=== PATIENT | female | born 1960 | race Caucasian/White ===

== ENCOUNTER 2016-12-24 17:31 | Emergency (ER) | payer MEDICAID ==
[2016-12-24 17:31] VITALS: BMI 28.5
[2016-12-24 17:47] VITALS: RESP 18
[2016-12-24] MEDS ORDERED: Sodium Chloride 0.9% 1,000 ML IV ONE (19:07)
--- NOTE | 2016-12-24 19:13 | C.PDOC ---
History Of Present Illness 56 year old female with a Hx of CVA in 1997 presents to the ER with a complaint of a headache for the past 3-4 days associated with a sore throat. Patient has residual left sided weakness due to her prior CVA. Denies nausea, vomiting, fever, or chills. Chief Complaint (Nursing): Headache History Per: Patient History/Exam Limitations: no limitations Onset/Duration Of Symptoms: Days Current Symptoms Are (Timing): Still Present Preceeding Symptoms: None Associated Symptoms: denies: Photophobia, Blurred Vision, Nausea, Vomiting Recent travel outside of the [place]: No Past Medical History Reviewed: Historical Data, Nursing Documentation, Vital Signs Vital Signs: Last Vital Signs Temp 98 F 12/24/16 21:40 Pulse 88 12/24/16 21:40 Resp 18 12/24/16 21:40 BP 126/69 12/24/16 21:40 Pulse Ox 99 12/24/16 21:40 - Medical History PMH: Arthritis, Asthma, CVA, Diabetes, HTN, Hypercholesterolemia, Seizures Surgical History: No Surg Hx - [facility] Procedures ANESTH INJECT-SPIN CANAL (01/05/15) INJECT STEROID (01/05/15) LUMBOSAC SPINE X-RAY NEC (01/05/15) SPINAL CANAL INJECT NEC (01/05/15) Family History: States: Unknown Family Hx - Social History Hx Tobacco Use: No Hx Alcohol Use: No Hx Substance Use: No - Immunization History Hx Influenza Vaccination: Yes Review Of Systems Constitutional: Negative for: Fever, Chills ENT: Positive for: Throat Pain Gastrointestinal: Negative for: Nausea, Vomiting Neurological: Positive for: Weakness (Left sided from old CVA), Headache. Negative for: Dizziness Physical Exam - Physical Exam Appears: Non-toxic, Other (Moderate distress) Skin: Normal Color, Warm, Dry Head: Atraumatic, Normacephalic Eye(s): bilateral: Normal Inspection, PERRL, EOMI Oral Mucosa: Moist Throat: Normal, No Erythema, No Exudate Neck: Normal, Normal ROM, No Midline Cervical Tenderness, No Paracervical Tenderness, Supple Chest: Symmetrical, No Tenderness Cardiovascular: Rhythm Regular, No Murmur Respiratory: Normal Breath Sounds, No Rales, No Rhonchi, No Wheezing Gastrointestinal/Abdominal: Soft, No Tenderness Neurological/Psych: Oriented x3, Normal Speech, Normal Cognition, Other (Left sided weakness from prior CVA) ED Course And Treatment - Laboratory Results Result Diagrams: 12/24/16 19:23 12/24/16 19:23 O2 Sat by Pulse Oximetry: 95 (Room air) Pulse Ox Interpretation: Normal - CT Scan/US CT Head Other Rad Studies (CT/US): Read By Radiologist, Radiology Report Reviewed CT/US Interpretation: EXAM: CT Head Without Intravenous Contrast. CLINICAL HISTORY: 56 years old, female; Condition or disease; Headache; Headache not specified; Patient HX: Left side. weakness. H/o stroke. TECHNIQUE: Axial computed tomography images of the head/brain without intravenous contrast. All CT scans at. this facility use one or more dose reduction techniques, viz.: automated exposure control; ma/kV. adjustment per patient size (including targeted exams where dose is matched to indication; i.e. head);. or iterative reconstruction technique. COMPARISON: No relevant prior studies available. FINDINGS: Brain: Mild atrophy. No intracranial hemorrhage. No mass. Moderate encephalomalacia within. RIGHT frontal parietal region. No definite edema. Ventricles: No hydrocephalus. Bones/joints: No acute fracture. Soft tissues: Unremarkable. Sinuses: Complete opacification of LEFT frontal sinus. Partial opacification of LEFT ethmoid sinus. Partial opacification/fluid of LEFT frontal sinus. Minimal mucosal thickening of RIGHT ethmoid,. sphenoid sinuses. Mastoid air cells: No mastoid effusion. Orbits: Unremarkable as visualized. IMPRESSION: 1. No definite acute intracranial abnormality. Acute infarction may be CT occult within first 24 hours. If a focal deficit persists, consider followup CT or MRI for further evaluation. 2. Sinus disease. 3. Incidental/non -acute findings are described above Progress Note: Head CT, EKG, blood work, CXR, and urinalysis ordered. Toradol and IV fluids administered. Disposition Counseled Patient/Family Regarding: Diagnosis - Disposition Referrals: [facility] [Outside] Disposition: HOME/ ROUTINE Disposition Time: 21:13 Condition: STABLE Prescriptions: Azithromycin [Zithromax] 500 mg PO DAILY #10 tablet Loratadine [Claritin] 10 mg PO DAILY #10 tab Naproxen [Naprosyn Tab] 375 mg PO TIDPC #20 tab Instructions: Sinusitis (ED), General Headache (ED) Forms: [facility] (Maori), Gen Discharge Inst English Print Language: ROMANSH - POA Present On Arrival: None - Clinical Impression Clinical Impression: Headache, Sinusitis - Scribe Statement The provider has reviewed the documentation as recorded by the Scribwade Knox All medical record entries made by the Marisaibe were at my direction and personally dictated by me. I have reviewed the chart and agree that the record accurately reflects my personal performance of the history, physical exam, medical decision making, and the department course for this patient. I have also personally directed, reviewed, and agree with the discharge instructions and disposition.
[2016-12-24 19:26] LABS: BASO # 0.1 K/uL (0.0-0.2); BASO % 0.5 % (0.0-2.0); EOS # 0.2 K/uL (0.0-0.7); EOS % 1.9 % (0.0-4.0); HEMATOCRIT 38.5 % (34.0-47.0); LYMPH # 2.5 K/uL (1.0-4.3); LYMPH % 20.6 % (20.0-40.0); MEAN CELL VOLUME 76.2 fL (81.0-99.0); MEAN CORPUSCULAR HEMOGLOBIN 24.6 pg (27.0-31.0); MEAN CORPUSCULAR HGB CONC 32.3 g/dL (33.0-37.0); MEAN PLATELET VOLUME 9.5 fL (7.2-11.7); MONO # 0.8 K/uL (0.0-0.8); MONO % 6.6 % (0.0-10.0); NRBC % 0.1 % (0.0-2.0); RED CELL DISTRIBUTION WIDTH 16.9 % (11.5-14.5); WHITE BLOOD COUNT 12.1 K/uL (4.8-10.8)
[2016-12-24 19:33] LABS: CHLORIDE 94 mmol/L (98-107)
[2016-12-24 19:34] LABS: POTASSIUM 3.5 mmol/L (3.6-5.2); SODIUM 135 mmol/L (132-148)
[2016-12-24 19:36] LABS: BILIRUBIN,TOTAL 0.7 mg/dL (0.2-1.3); GFR AFRICAN-AMERICAN > 60
[2016-12-24 19:37] LABS: ALB/GLOB RATIO 0.8 (1.0-2.1); ALKALINE PHOSPHATASE 113 U/L (38-126); ALT/SGPT 33 U/L (9-52); AST/SGOT 40 U/L (14-36); BLOOD UREA NITROGEN 9 mg/dL (7-17); CALCIUM 9.7 mg/dl (8.6-10.4); CARBON DIOXIDE 28 mmol/L (22-30); GLUCOSE,RANDOM 143 mg/dL (65-105)
[2016-12-24] MEDS ORDERED: Sodium Chloride 0.9% 1,000 ML ONE (19:49)
--- NOTE | 2016-12-24 20:56 | CT ---
EXAM: CT Head Without Intravenous Contrast CLINICAL HISTORY: 56 years old, female; Condition or disease; Headache; Headache not specified; Patient HX: Left side weakness. H/o stroke TECHNIQUE: Axial computed tomography images of the head/brain without intravenous contrast. All CT scans at this facility use one or more dose reduction techniques, viz.: automated exposure control; ma/kV adjustment per patient size (including targeted exams where dose is matched to indication; i.e. head); or iterative reconstruction technique. COMPARISON: No relevant prior studies available. FINDINGS: Brain: Mild atrophy. No intracranial hemorrhage. No mass. Moderate encephalomalacia within RIGHT frontal parietal region. No definite edema. Ventricles: No hydrocephalus. Bones/joints: No acute fracture. Soft tissues: Unremarkable. Sinuses: Complete opacification of LEFT frontal sinus. Partial opacification of LEFT ethmoid sinus. Partial opacification/fluid of LEFT frontal sinus. Minimal mucosal thickening of RIGHT ethmoid, sphenoid sinuses Mastoid air cells: No mastoid effusion. Orbits: Unremarkable as visualized. IMPRESSION: 1. No definite acute intracranial abnormality. Acute infarction may be CT occult within first 24 hours. If a focal deficit persists, consider followup CT or MRI for further evaluation. 2. Sinus disease. 3. Incidental/non-acute findings are described above.
[2016-12-24 21:41] VITALS: BP 126/69; PULSE 88; TEMP 98
--- NOTE | 2016-12-25 10:07 | RAD ---
HISTORY: cold Sx COMPARISON: None available TECHNIQUE: Chest PA and lateral FINDINGS: Examination limited by habitus and patient obliquity. LUNGS: No focal consolidation. Please note that chest x-ray has limited sensitivity for the detection of pulmonary masses. PLEURA: No significant pleural effusion identified. No definite pneumothorax . CARDIOVASCULAR: Heart size appears within normal limits. OSSEOUS STRUCTURES: Degenerative changes. VISUALIZED UPPER ABDOMEN: Mild elevation of the right hemidiaphragm. OTHER FINDINGS: None. IMPRESSION: No focal consolidation, significant pleural effusion, or definite pneumothorax identified.
[2016-12-25 17:37] VITALS: O2SAT 95
--- NOTE | 2016-12-28 15:45 | CARD ---
APPROVED REPORT EKG Measurement Heart [id number] ID [id number] <Conclusion> Normal sinus rhythm Normal ECG
== END 2016-12-24 21:40 | disposition home or self-care (01) ==
LOC: C.ER 17:31
DX: R51 Headache (principal); J32.9 Chronic sinusitis, unspecified
CPT/HCPCS: 70450; 71020; 80053; 85025; 96361; 96374; 99285; J1885; J7040

== ENCOUNTER 2017-06-30 13:27 | Emergency (ER) | payer MEDICAID ==
[2017-06-30 13:27] VITALS: BMI 28.5
[2017-06-30 13:54] VITALS: TEMP 97.8; O2SAT 98
[2017-06-30] MEDS ORDERED: Albuterol-Ipratrop 3 mg / 0.5 (3 ml) UD INH STA (14:02)
[2017-06-30] MEDS ORDERED: MethylPREDNISolone 40 mg Vial IM STA (14:02)
[2017-06-30] MEDS ORDERED: MethylPREDNISolone 40 mg Vial ONE (14:07)
[2017-06-30] MEDS ORDERED: Albuterol-Ipratrop 3 mg / 0.5 (3 ml) UD ONE ×2 (14:08→14:17)
--- NOTE | 2017-06-30 14:44 | C.PDOC ---
History Of Present Illness 56 year old female presents to the ED for evaluation of cough and congestion which began 2 weeks ago. Patient was seen by her PMD and given prescription for Zithromax. She states her cough persists and presents to the ED for further evaluation. Patient denies cough, nausea, and vomiting. Time Seen by Provider: 06/30/17 13:53 Chief Complaint (Nursing): Cough, Cold, Congestion History Per: Patient History/Exam Limitations: no limitations Onset/Duration Of Symptoms: Other (2 weeks ) Current Symptoms Are (Timing): Still Present Associated Symptoms: Cough, Other (congestion ). denies: Nausea, Vomiting Ear Symptoms: Bilateral: None Additional History Per: Patient Past Medical History Reviewed: Historical Data, Nursing Documentation, Vital Signs Vital Signs: Last Vital Signs Temp 97.8 F 06/30/17 13:52 Pulse 88 06/30/17 14:55 Resp 16 06/30/17 14:55 BP 139/81 06/30/17 14:55 Pulse Ox 98 06/30/17 20:27 - Medical History PMH: Arthritis, Asthma, CVA, Diabetes, HTN, Hypercholesterolemia, Seizures Denies: Chronic Kidney Disease Surgical History: No Surg Hx - [facility] Procedures ANESTH INJECT-SPIN CANAL (01/05/15) INJECT STEROID (01/05/15) LUMBOSAC SPINE X-RAY NEC (01/05/15) SPINAL CANAL INJECT NEC (01/05/15) Family History: States: Unknown Family Hx - Social History Hx Tobacco Use: No Hx Alcohol Use: No Hx Substance Use: No - Immunization History Hx Influenza Vaccination: Yes Review Of Systems Respiratory: Positive for: Cough, Other (congestion ) Gastrointestinal: Negative for: Nausea, Vomiting Physical Exam - Physical Exam Appears: Non-toxic, No Acute Distress Skin: Normal Color, Warm, Dry Head: Atraumatic, Normacephalic Eye(s): bilateral: Normal Inspection Ear(s): Bilateral: Normal Nose: Normal, No Discharge Oral Mucosa: Moist Throat: Normal, No Erythema, No Exudate Neck: Supple Chest: Symmetrical, No Deformity, No Tenderness Cardiovascular: Rhythm Regular, No Murmur Respiratory: No Rales, No Rhonchi, Wheezing (expiratory ) Extremity: Normal ROM, Capillary Refill (less than 2 seconds ) Neurological/Psych: Normal Speech, Normal Cognition ED Course And Treatment O2 Sat by Pulse Oximetry: 98 (on RA) Pulse Ox Interpretation: Normal Medical Decision Making Medical Decision Making: CXR reviewed showing no infiltrates, pleural effusion or pneumothorax Patient treated with Solu-medrol and duoneb Patient remained afebrile alert and oriented with stable vital signs during ER evaluation. On re-examination, patient is resting comfortably in no acute distress. Lungs clear bilaterally. Patient has no fever and in no distress. Patient reports improvement of symptoms. Patient feels comfortable going home and will be discharged. Patient given follow up instructions. Instructed to return to ER if symptoms worsen or new symptoms arise. Disposition Counseled Patient/Family Regarding: Diagnosis, Need For Followup, Rx Given - Disposition Disposition: HOME/ ROUTINE Disposition Time: 14:43 Condition: STABLE Additional Instructions: Contine usando sita medicamentos para el asma. Benedict Prednisone a diario. Kamlesh un seguimiento con oneill mdico primario o clnica en 1 semana para janneth evaluacin adicional. Continue using your asthma medications. Take Prednisone daily. Follow up with your primary medical doctor or clinic in 1 week for further evaluation. 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 - Scribe Statement The provider has reviewed the documentation as recorded by the Scribe (Roslyn Vizcaino) All medical record entries made by the Scribe were at my direction and personally dictated by me. I have reviewed the chart and agree that the record accurately reflects my personal performance of the history, physical exam, medical decision making, and the department course for this patient. I have also personally directed, reviewed, and agree with the discharge instructions and disposition.
[2017-06-30 14:56] VITALS: BP 139/81; PULSE 88; RESP 16
--- NOTE | 2017-06-30 15:20 | RAD ---
HISTORY: sob COMPARISON: Comparison is made with 12/24/2016 TECHNIQUE: Chest PA and lateral FINDINGS: LUNGS: No active pulmonary disease. PLEURA: No significant pleural effusion identified. No pneumothorax apparent. CARDIOVASCULAR: Normal. OSSEOUS STRUCTURES: No significant abnormalities. VISUALIZED UPPER ABDOMEN: Normal. OTHER FINDINGS: None. IMPRESSION: No active disease.
== END 2017-06-30 14:55 | disposition home or self-care (01) ==
LOC: C.ER 13:27
DX: J40 Bronchitis, not specified as acute or chronic (principal)
CPT/HCPCS: 71046; 94640; 96372; 99283; J2920

== ENCOUNTER 2018-06-12 14:30 | Emergency (ER) | payer MEDICAID ==
[2018-06-12 14:42] VITALS: BMI 29.6
[2018-06-12 15:05] VITALS: O2SAT 98
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
[2018-06-12 16:03] LABS: BASO % 0.5 % (0.0-2.0); EOS # 0.2 K/uL (0.0-0.7); EOS % 2.1 % (0.0-4.0); HEMOGLOBIN 10.5 g/dL (11.0-16.0); LYMPH # 2.7 K/uL (1.0-4.3); LYMPH % 32.3 % (20.0-40.0); MEAN CELL VOLUME 71.7 fL (81.0-99.0); MEAN CORPUSCULAR HEMOGLOBIN 22.1 pg (27.0-31.0); MEAN CORPUSCULAR HGB CONC 30.8 g/dL (33.0-37.0); MEAN PLATELET VOLUME 9.8 fL (7.2-11.7); MONO # 0.5 K/uL (0.0-0.8); MONO % 6.4 % (0.0-10.0); NEUT # 4.9 K/uL (1.8-7.0); NEUT % 58.7 % (50.0-75.0); RBC 4.77 Mil/uL (3.80-5.20); RED CELL DISTRIBUTION WIDTH 18.5 % (11.5-14.5); WHITE BLOOD COUNT 8.3 K/uL (4.8-10.8)
[2018-06-12 16:19] LABS: ALB/GLOB RATIO 1.1 (1.0-2.1); ALBUMIN 4.4 g/dL (3.5-5.0); ALT/SGPT 17 U/L (9-52); AST/SGOT 29 U/L (14-36); BLOOD UREA NITROGEN 12 mg/dL (7-17); CALCIUM 9.3 mg/dl (8.6-10.4); GFR NON-AFRICAN AMERICAN > 60
--- NOTE | 2018-06-12 16:32 | RAD ---
HISTORY: chest pain COMPARISON: Chest x-ray performed 06/30/17 TECHNIQUE: Chest PA and lateral FINDINGS: Examination limited by habitus. LUNGS: No focal consolidation. Please note that chest x-ray has limited sensitivity for the detection of pulmonary masses. PLEURA: No significant pleural effusion identified. No definite pneumothorax . CARDIOVASCULAR: The cardiomediastinal silhouette appears within normal limits of size. No atherosclerotic calcification present. OSSEOUS STRUCTURES: No acute osseous abnormality identified. VISUALIZED UPPER ABDOMEN: Mild elevation right hemidiaphragm. OTHER FINDINGS: None. IMPRESSION: No focal consolidation.
[2018-06-12 17:22] VITALS: BP 129/84; PULSE 80; RESP 16; TEMP 98
--- NOTE | 2018-06-16 09:24 | CARD ---
APPROVED REPORT Date of service: 06/12/2018 EKG Measurement Heart [id number] PA [id number] <Conclusion> Normal sinus rhythm Normal ECG
--- NOTE | 2018-06-16 09:25 | CARD ---
APPROVED REPORT Date of service: 06/12/2018 EKG Measurement Heart [id number] NM [id number] <Conclusion> Normal sinus rhythm Normal ECG
== END 2018-06-12 17:24 | disposition left against medical advice (07) ==
LOC: C.ER 14:30
DX: R07.9 Chest pain, unspecified (principal); R42 Dizziness and giddiness; D64.9 Anemia, unspecified; E11.9 Type 2 diabetes mellitus without complications; E78.00 Pure hypercholesterolemia, unspecified; Z86.73 Personal history of transient ischemic attack (TIA), and cerebral infarction without residual deficits